=== PATIENT | female | born 1985 | race Caucasian/White ===

== ENCOUNTER 2016-08-26 21:31 | Emergency (ER) | payer OTHER ==
[2016-08-26 21:34] VITALS: BP 135/80; PULSE 91; TEMP 98.2; BMI 43.0
--- NOTE | 2016-08-26 22:51 | PDOC ---
History of Present Illness <Kajal Ann - Last Filed: 08/26/16 23:30> <Nataly Garcia - Last Filed: 08/27/16 02:02> - General Chief Complaint: Chest Pain Stated Complaint: CHEST PAIN Time Seen by Provider: 08/26/16 22:49 - History of Present Illness Initial Comments: 08/26/16 23:20 The patient is a 31 year old female, with a significant past medical history of anxiety and hypertension, who presents to the emergency department with sudden onset of chest pain and tightness a couple of hours ago. She reports the pain has been intermittent, sharp and non-radiating since the initial onset. She states her pain is presenting exactly like her experience with anxiety attacks in the past. The patient also presents with her son who is also a patient. She denies shortness of breath, headache and dizziness. She denies fever, chills , nausea, vomit, diarrhea and constipation. She denies dysuria, frequency, urgency and hematuria. Allergies: NKDA Past surgical history: x5 Social history: former smoker (6 month cessation) PCP - Dr. Mayela Aguirre (Kajal Ann) Past History <Kajal Ann - Last Filed: 08/26/16 23:30> - Past Medical History Asthma: No Cancer: No Cardiac Disorders: No Diabetes: No HTN: No Psychiatric Problems: Yes (DEPRESSION, ANXIETY) Suicide Attempt (Hx): No Seizures: No Thyroid Disease: No - Immunization History Td Vaccination: Yes Immunization Up to Date: Yes - Psycho/Social/Smoking Cessation Hx Anxiety: Yes Suicidal Ideation: No Smoking Status: Yes Smoking History: Never smoked Years of Tobacco Use: 0 Have you smoked in the past 12 months: No Number of Cigarettes Smoked Daily: 0 If you are a former smoker, when did you quit?: 3 months Cigars Per Day: 0 'Breaking Loose' booklet given: 07/13/13 Hx Alcohol Use: No Drug/Substance Use Hx: No Substance Use Type: None Hx Substance Use Treatment: No <Nataly Garcia - Last Filed: 08/27/16 02:02> - Past Medical History Allergies/Adverse Reactions: Allergies Allergy/AdvReac Type Severity Reaction Status Date / Time No Known Allergies Allergy Verified 08/26/16 21:35 Home Medications: Ambulatory Orders Clonazepam [KlonoPIN] 0.5 mg PO DAILY 10/08/14 Sertraline HCl [Zoloft -] 50 mg PO DAILY #20 tablet 01/03/15 Cardiac Specific PMH - Complaint Specific PMHX Angina: No Pulmonary Embolus: No <Nataly Garcia - Last Filed: 08/27/16 02:02> Review of Systems - Review of Systems Able to Perform ROS?: Yes <Kajal Ann - Last Filed: 08/26/16 23:30> <Nataly Garcia - Last Filed: 08/27/16 02:02> - Review of Systems Comments:: 08/26/16 23:21 CONSTITUTIONAL: Absent: fever, chills, diaphoresis, generalized weakness, malaise, loss of appetite HEENT: Absent: rhinorrhea, nasal congestion, throat pain, throat swelling, difficulty swallowing, mouth swelling, ear pain, eye pain, visual Changes CARDIOVASCULAR: (+) chest pain and tightness,Absent: syncope, palpitations, irregular heart rate , lightheadedness, peripheral edema RESPIRATORY: Absent: cough, shortness of breath, dyspnea with exertion, orthopnea, wheezing, stridor, hemoptysis GASTROINTESTINAL: Absent: abdominal pain, abdominal distension, nausea, vomiting, diarrhea, constipation, melena, hematochezia GENITOURINARY: Absent: dysuria, frequency, urgency, hesitancy, hematuria, flank pain, genital pain MUSCULOSKELETAL: Absent: myalgia, arthralgia, joint swelling SKIN: Absent: rash, itching, pallor HEMATOLOGIC/IMMUNOLOGIC: Absent: easy bleeding, easy bruising, lymphadenopathy, frequent infections ENDOCRINE: Absent: unexplained weight gain, unexplained weight loss, heat intolerance, cold intolerance NEUROLOGIC: Absent: headache, focal weakness or paresthesias, dizziness, unsteady gait, seizure, mental status changes, bladder or bowel incontinence PSYCHIATRIC: Absent: anxiety, depression, suicidal or homicidal ideation, hallucinations. (Kajal Ann) *Physical Exam <Kajal Ann - Last Filed: 08/26/16 23:30> <Nataly Garcia - Last Filed: 08/27/16 02:02> - Vital Signs Last Vital Signs Temp Pulse Resp BP Pulse Ox 98.2 F 91 H 20 135/80 98 08/26/16 21:33 08/26/16 21:33 08/26/16 21:33 08/26/16 21:33 08/26/16 21:33 - Physical Exam Comments: 08/26/16 23:21 GENERAL: Well developed, well nourished. Awake and alert. No acute distress. HEENT: Normocephalic, atraumatic. PERRLA, EOMI. No conjunctival pallor. Sclera are non- icteric. Moist mucous membranes. Oropharynx is clear. NECK: Supple. Full ROM. No JVD. Carotid pulses 2+ and symmetric, without bruits. No thyromegaly. No lymphadenopathy. CARDIOVASCULAR: Regular rate and rhythm. No murmurs, rubs, or gallops. Distal pulses are 2+ and symmetric. PULMONARY: No evidence of respiratory distress. Lungs clear to auscultation bilaterally. No wheezing, rales or rhonchi. ABDOMINAL: Soft. Non-tender. Non-distended. No rebound or guarding. No organomegaly. Normoactive bowel sounds. MUSCULOSKELETAL Normal range of motion at all joints. No bony deformities or tenderness. No CVA tenderness. EXTREMITIES: No cyanosis. No clubbing. No edema. No calf tenderness. SKIN: Warm and dry. Normal capillary refill. No rashes. No jaundice. NEUROLOGICAL: Alert, awake, appropriate. Cranial nerves 2-12 intact. Normoreflexic in the upper and lower extremities. Normal speech. Toes are down-going bilaterally. Gait is normal without ataxia. PSYCHIATRIC: Cooperative. Good eye contact. Appropriate mood and affect. (Kajal Ann) Heart Score/ECG Review <Kajal Ann - Last Filed: 08/26/16 23:30> <Nataly Garcia - Last Filed: 08/27/16 02:02> - ECG Intrepretation Comment:: 08/26/16 23:30 ECG was read by Dr. Garcia at 21:40 Impression: Normal Sinus Rhythm (Kajal Ann) ED Treatment Course - LABORATORY CBC & Chemistry Diagram: 08/26/16 23:15 08/26/16 23:15 <Kajal Ann - Last Filed: 08/26/16 23:30> - LABORATORY CBC & Chemistry Diagram: 08/26/16 23:15 08/26/16 23:15 <Nataly Garcia - Last Filed: 08/27/16 02:02> - ADDITIONAL ORDERS Additional order review: Laboratory Results 08/26/16 08/26/16 08/26/16 23:15 23:15 23:15 Sodium 140 Potassium 4.0 Chloride 102 Carbon Dioxide 29 Anion Gap 9 BUN 17 Creatinine 0.8 Creat Clearance w eGFR > 60 Random Glucose 101 Calcium 8.9 Total Bilirubin 0.2 D AST 12 L ALT 19 Alkaline Phosphatase 81 Creatine Kinase 93 Troponin I < 0.02 Total Protein 7.7 Albumin 3.4 Serum , Qual Negative 08/26/16 23:15 RBC 4.31 MCV 78.3 L MCHC 33.6 RDW 16.1 H MPV 9.1 Neutrophils % 56.5 D Lymphocytes % 34.8 D Monocytes % 5.6 Eosinophils % 2.4 D Basophils % 0.7 - RADIOLOGY Radiology Studies Ordered: Category Date Time Status CHEST PA & LAT [RAD] Stat Radiology 08/27/16 00:51 Taken - Medications Given in the ED: ED Medications Discontinued Medications Generic Name Dose Route Start Last Admin Trade Name Paul PRN Reason Stop Dose Admin Aspirin 81 mg 08/26/16 23:04 08/26/16 23:07 Asa - PO 08/26/16 23:05 81 mg ONCE ONE Administration *DC/Admit/Observation/Transfer <Kajal Ann - Last Filed: 08/26/16 23:30> <Nataly Garcia - Last Filed: 08/27/16 02:02> Diagnosis at time of Disposition: Atypical chest pain, Anxiety - Discharge Dispostion Disposition: HOME Condition at time of disposition: Stable - Referrals Referrals: Mayela Aguirre MD [Primary Care Provider] - - Patient Instructions Printed Discharge Instructions: DI for Atypical Chest Pain, DI for Anxiety -- Adult Additional Instructions: PLEASE FOLLOWUP WITH YOUR REGULAR PHYSICIAN RETURN FOR ANY RECURRENT SYMPTOMS please have your psychiatrist renew your prescriptions - Attestations Scribe Attestion: 08/26/16 23:23 Documentation prepared by Kajal Ann, acting as program medical director for Nataly Garcia MD (Kajal Ann)
[2016-08-26] MEDS ORDERED: ASPIRIN 81 MG CHEWABLE TABLETS PO ONE (23:04)
[2016-08-26] MEDS ORDERED: ASPIRIN 81 MG CHEWABLE TABLETS ONE (23:05)
[2016-08-26 23:26] LABS: BASOPHIL 0.7 % (0-2.0); EOSINOPHIL 2.4 % (0-4.5); MCH 26.3 pg (25.7-33.7); MCHC 33.6 g/dl (32.0-36.0); MEAN CELL VOLUME 78.3 fl (80-96); MEAN PLT VOLUME 9.1 fl (7.5-11.1); NEUTROPHILS 56.5 % (42.8-82.8); PLATELET COUNT 306 K/MM3 (134-434); RDW 16.1 % (11.6-15.6); WHITE BLOOD COUNT 11.4 K/mm3 (4.0-10.0)
[2016-08-27 00:08] LABS: ALBUMIN 3.4 g/dl (3.4-5.0); ANION GAP 9 (8-16); BILIRUBIN,TOTAL 0.2 mg/dL (0.2-1.0); CALCIUM 8.9 mg/dL (8.5-10.1); CO2 29 mmol/L (21-32); CREATININE 0.8 mg/dL (0.55-1.02); GLUCOSE,RANDOM 101 mg/dL (74-106); SGOT/AST 12 U/L (15-37); SGPT/ALT 19 U/L (12-78); TOT PROT 7.7 g/dl (6.4-8.2)
[2016-08-27 00:09] LABS: ALK PHOS 81 U/L (45-117); TROPONIN I < 0.02 ng/ml (0.00-0.05)
[2016-08-27] MEDS ORDERED: ALPRAZolam 0.25 MG TABLET PO ONE (02:00)
[2016-08-27] MEDS ORDERED: ALPRAZolam 0.25 MG TABLET ONE (02:05)
--- NOTE | 2016-08-29 11:53 | EKG ---
Test Reason : Blood Pressure : / mmHG Vent. Rate : 082 BPM Atrial Rate : 082 BPM P-R Int : 168 ms QRS Dur : 092 ms QT Int : 368 ms P-R-T Axes : 055 081 045 degrees QTc Int : 429 ms NORMAL SINUS RHYTHM NONSPECIFIC T WAVE ABNORMALITY WHEN COMPARED WITH ECG OF 05-OCT-2014 10:09, NO SIGNIFICANT CHANGE WAS FOUND Confirmed by MARCIAL CUEVAS MD ([id number]) on 08/29/2016 11:52:43 AM Referred By: Confirmed By:MARCIAL CUEVAS MD
== END 2016-08-27 02:10 | disposition home or self-care (01) ==
LOC: JER 21:31
DX: R07.89 Other chest pain (principal); F41.9 Anxiety disorder, unspecified; I10 Essential (primary) hypertension
CPT/HCPCS: 36415; 71020-TC; 80053; 82550; 84484; 84703; 85025; 93005; 93010; 99281-25

== ENCOUNTER 2016-12-21 13:11 | Emergency (ER) | payer OTHER ==
[2016-12-21 13:23] VITALS: BP 137/78; PULSE 90; TEMP 98; BMI 43.0
--- NOTE | 2016-12-21 14:19 | PDOC ---
History of Present Illness - General Chief Complaint: Pain Stated Complaint: CHEST PAIN Time Seen by Provider: 12/21/16 13:37 - History of Present Illness Initial Comments: 12/21/16 14:14 CHIEF COMPLAINT: back and chest pain HISTORY OF PRESENT ILLNESS: 31 yo F with hx of PMH of anxiety and HTN (now off medication) presents to fast track with left sided shoulder pain worsened with movement and inspiration since yesterday. Patient denies being on control , any recent travel or extended sedentary periods or smoking. No recent travel or sick contacts. PAST MEDICAL HISTORY: Denies past medical history FAMILY HISTORY: Denies SOCIAL HISTORY:Denies tobacco, alcohol, illicit drug use. SURGICAL HISTORY: Denies ALLERGIES: No known drug allergies REVIEW OF SYSTEMS General/Constitutional: Denies fever or chills. Denies weakness, weight change. HEENT: Denies change in vision. Denies ear pain or discharge. Denies sore throat. Cardiovascular: Denies chest pain or shortness of breath. Respiratory: Denies cough, wheezing, or hemoptysis. Gastrointestinal: Denies nausea, vomiting, diarrhea or constipation. Denies rectal bleeding. Genitourinary: Denies dysuria, frequency, or change in urination. Musculoskeletal: Pain to left shoulder and left chest pain with movement. Denies joint or muscle swelling or pain. Denies neck or back pain. Skin and breasts: Denies rash or easy bruising. PHYSICAL EXAM General Appearance: Well-appearing, appropriately dressed. No apparent distress , no intoxication. HEENT: EOMI, PERRLA, normal ENT inspection, normal voice, TMs normal, pharynx normal. No conjunctival pallor. No photophobia, scleral icterus. Neck: Supple. Trachea midline. No tenderness, rigidity, carotid bruit, stridor , lymphadenopathy, or thyromegaly. Respiratory/Chest: Lungs CTAB. No shortness of breath, chest tenderness, respiratory distress, accessory muscle use. No crackles, rales, rhonchi, stridor , wheezing, dullness Cardiovascular: RRR. S1, S2. No JVD, murmur, bradycardia, tachycardia. Vascular Pulses: Dorsalis-Pedis (R): 2+, Dorsalis-Pedis (L): 2+ Gastrointestinal/Abdominal: Normal bowel sounds. Abdomen soft, non-distended. No tenderness or rebound tenderness. No organomegaly, pulsatile mass, guarding , hernia, hepatomegaly, splenomegaly. Lymphatic: No adenopathy, tenderness. Musculoskeletal/Extremities: Reproducible left sided chest and upper back tenderness on palpation. Normal inspection. FROM of all extremities, normal capillary refill. Pelvis Stable. No CVA tenderness. No tenderness to extremities, pedal edema, swelling, erythema or deformity. Integumentary: Appropriate color, dry, warm. No cyanosis, erythema, jaundice or rash Neurologic: balloon dipper II-XII intact. Fully oriented, alert. Appropriate mood/affect. Motor strength 5/5. No appreciable EOM palsy, facial droop or sensory deficit. 12/21/16 14:19 Past History - Past Medical History Allergies/Adverse Reactions: Allergies Allergy/AdvReac Type Severity Reaction Status Date / Time No Known Allergies Allergy Verified 12/21/16 13:23 Home Medications: Ambulatory Orders Diazepam [Valium] 5 mg PO HS PRN #5 tablet MDD 1 12/21/16 Naproxen [Naprosyn -] 500 mg PO BID #14 tablet 12/21/16 Asthma: No Cancer: No Cardiac Disorders: No Diabetes: No HTN: No Psychiatric Problems: Yes (DEPRESSION, ANXIETY) Suicide Attempt (Hx): No Seizures: No Thyroid Disease: No - Immunization History Td Vaccination: Yes Immunization Up to Date: Yes - Psycho/Social/Smoking Cessation Hx Anxiety: Yes Suicidal Ideation: No Smoking Status: Yes Smoking History: Never smoked Years of Tobacco Use: 0 Have you smoked in the past 12 months: No Number of Cigarettes Smoked Daily: 0 If you are a former smoker, when did you quit?: 3 months Cigars Per Day: 0 Information on smoking cessation initiated: No 'Breaking Loose' booklet given: 07/13/13 Hx Alcohol Use: No Drug/Substance Use Hx: No Substance Use Type: None Hx Substance Use Treatment: No *Physical Exam - Vital Signs Last Vital Signs Temp Pulse Resp BP Pulse Ox 98 F 90 18 137/78 99 12/21/16 13:20 12/21/16 13:20 12/21/16 13:20 12/21/16 13:20 12/21/16 13:20 Medical Decision Making - Medical Decision Making 12/21/16 14:23 31 yo F with hx of PMH of anxiety and HTN (now off medication) presents to fast track with left sided shoulder pain worsened with movement and inspiration since yesterday. VS notable for HR 90, but at patient's baseline. PE considered but unlikely, patient is PERC negative. -EKG -Urine EKG - NSR Upreg negative. -60 mg IM Toradol 12/21/16 14:25 Advised patient to take medication as prescribed and follow up with primary care doctor this week. Advised patient of signs and symptoms for return to ED. Patient verbalized understanding and agrees to plan. *DC/Admit/Observation/Transfer Diagnosis at time of Disposition: Anxiety, Costochondral pain - Discharge Dispostion Disposition: HOME Condition at time of disposition: Improved Admit: No - Prescriptions Prescriptions: Naproxen [Naprosyn -] 500 mg PO BID #14 tablet Diazepam [Valium] 5 mg PO HS PRN #5 tablet MDD 1 PRN Reason: Muscle Spasms - Referrals Referrals: Florentino Padilla [Primary Care Provider] - - Patient Instructions Printed Discharge Instructions: DI for Costochondritis Additional Instructions: Please take medication as prescribed. Please follow up with your primary care doctor THIS WEEK. If you experience any crushing chest pain, - Post Discharge Activity
[2016-12-21] MEDS ORDERED: KETOROLAC TROMETHAMINE 60 MG/2 ML VIAL IM ONE (14:24)
[2016-12-21] MEDS ORDERED: KETOROLAC TROMETHAMINE 60 MG/2 ML VIAL ONE (14:44)
--- NOTE | 2016-12-22 10:49 | EKG ---
Test Reason : Blood Pressure : / mmHG Vent. Rate : 094 BPM Atrial Rate : 094 BPM P-R Int : 148 ms QRS Dur : 084 ms QT Int : 340 ms P-R-T Axes : 047 073 042 degrees QTc Int : 425 ms NORMAL SINUS RHYTHM NORMAL ECG WHEN COMPARED WITH ECG OF 26-AUG-2016 21:40, NO SIGNIFICANT CHANGE WAS FOUND Confirmed by SANDRA CROFT MD ([id number]) on 12/22/2016 10:48:43 AM Referred By: Confirmed By:SANDRA CROFT MD
== END 2016-12-21 15:08 | disposition home or self-care (01) ==
LOC: JERFT 13:11
PROC: 3E0233Z Introduction of Anti-inflammatory into Muscle, Percutaneous Approach (ICD-10-PCS; principal; 2016-12-21)
DX: M94.0 Chondrocostal junction syndrome [Tietze] (principal); F41.9 Anxiety disorder, unspecified; I10 Essential (primary) hypertension
CPT/HCPCS: 84703; 93005; 93010; 96372; 99281-25

== ENCOUNTER 2017-10-04 02:54 | Emergency (ER) | payer OTHER ==
--- NOTE | 2017-10-04 03:04 | PDOC ---
History of Present Illness - General Stated Complaint: ABDOMINAL PAIN Time Seen by Provider: 10/04/17 03:03 History Source: Patient Exam Limitations: No Limitations - History of Present Illness Travel History: No Initial Comments: 10/04/17 03:43 Best Contact: PCP:Dr. Gaspar Pmhx: Asthma, PTSD Pshx:C sections(5) 2014, 2009. 2008. 2004, 2002 Allergies:NKDA LMP: 09/26/2017 32-year-old female presents to the ER with her mother complaining of epigastric abdominal discomfort. Pain is described as 5/10 achy nonradiating intermittent discomfort with 3 bouts of nausea/vomiting that were nonbloody and nonbilious. Pain is exacerbated on touch and alleviated at rest. He she states she ate dinner at 2200 hrs. in a seafood restaurant in [facility] and felt like upset stomach shortly afterwards. Patient denies fever, chills, headache, dizziness, lightheadedness, chest pain, shortness of breath, back pains, flank pains, urinary symptoms: Frequency/urgency/hesitancy, hematuria. Past History - Past Medical History Allergies/Adverse Reactions: Allergies Allergy/AdvReac Type Severity Reaction Status Date / Time No Known Allergies Allergy Verified 10/04/17 03:10 Home Medications: Ambulatory Orders NK [No Known Home Medication] 10/04/17 Asthma: No Cancer: No Cardiac Disorders: No Diabetes: No HTN: No Psychiatric Problems: Yes (DEPRESSION, ANXIETY) Seizures: No Thyroid Disease: No - Immunization History Td Vaccination: Yes Immunization Up to Date: Yes - Suicide/Smoking/Psychosocial Hx Smoking Status: Yes Smoking History: Never smoked Years of Tobacco Use: 0 Have you smoked in the past 12 months: No Number of Cigarettes Smoked Daily: 0 If you are a former smoker, when did you quit?: 3 months Cigars Per Day: 0 'Breaking Loose' booklet given: 07/13/13 Hx Alcohol Use: No Drug/Substance Use Hx: No Substance Use Type: None Hx Substance Use Treatment: No Review of Systems - Review of Systems Able to Perform ROS?: Yes Comments:: 10/04/17 03:45 CONSTITUTIONAL: Absent: fever, chills, diaphoresis, generalized weakness, malaise, loss of appetite HEENT: Absent: rhinorrhea, nasal congestion, throat pain, throat swelling, difficulty swallowing, mouth swelling, ear pain, eye pain, visual Changes CARDIOVASCULAR: Absent: chest pain, loss of consciousness, palpitations, irregular heart rate, peripheral edema RESPIRATORY: Absent: cough, shortness of breath, dyspnea with exertion, orthopnea, wheezing, stridor, hemoptysis GASTROINTESTINAL: +epigastric pain Absent: abdominal distension, nausea, vomiting, diarrhea, constipation, melena , hematochezia GENITOURINARY: Absent: dysuria, frequency, urgency, hesitancy, hematuria, flank pain, genital pain MUSCULOSKELETAL: Absent: myalgia, arthralgia, joint swelling SKIN: Absent: rash, itching, pallor HEMATOLOGIC/IMMUNOLOGIC: Absent: easy bleeding, easy bruising, lymphadenopathy, frequent infections Is the patient limited Bhutanese proficient: No *Physical Exam - Physical Exam Comments: 10/04/17 03:46 GENERAL: Well developed, well nourished. Awake and alert. No acute distress. HEENT: Normocephalic, atraumatic. PERRLA, EOMI. No conjunctival pallor. Sclera are non- icteric. Moist mucous membranes. Oropharynx is clear. NECK: Supple. Full ROM. No JVD. Carotid pulses 2+ and symmetric, without bruits. No thyromegaly. No lymphadenopathy. CARDIOVASCULAR: Regular rate and rhythm. No murmurs, rubs, or gallops. Distal pulses are 2+ and symmetric. PULMONARY: No evidence of respiratory distress. Lungs clear to auscultation bilaterally. No wheezing, rales or rhonchi. ABDOMINAL: +epigastric pain Soft. Non-distended. No rebound or guarding. No organomegaly. Normoactive bowel sounds. MUSCULOSKELETAL Normal range of motion at all joints. No bony deformities or tenderness. No CVA tenderness. SKIN: Warm and dry. Normal capillary refill. No rashes. No jaundice. ED Treatment Course - LABORATORY CBC & Chemistry Diagram: 10/04/17 02:56 10/04/17 02:56 Progress Note - Progress Note Progress Note: 0515hrs patient refuses to get a CAT scan of the abdomen and pelvis with by mouth and IV contrast. 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 The ER is open 24 hours concerns - Post Discharge Activity
[2017-10-04] MEDS ORDERED: ONDANSETRON 4 MG/2 ML VIAL IVPUSH ONE (03:05)
[2017-10-04] MEDS ORDERED: SODIUM CHLORIDE 1,000 ML IV STA (03:05)
[2017-10-04 03:10] VITALS: BP 120/82; PULSE 91; TEMP 97.8; BMI 39.9
[2017-10-04] MEDS ORDERED: MAG HYDROX/AL HYDROX/SIMETH 30 ML UNIT-DOSE CUP PO ONE (03:29)
[2017-10-04] MEDS ORDERED: FAMOTIDINE 20 MG/50 ML IVPB 20 MG/50 ML MG IVPB ONE (03:30)
[2017-10-04] MEDS ORDERED: MAG HYDROX/AL HYDROX/SIMETH 30 ML UNIT-DOSE CUP ONE (03:30)
[2017-10-04 03:37] LABS: BASO % 0.2 % (0-2.0); EOS % 0.7 % (0-4.5); HEMATOCRIT 34.8 % (32.4-45.2); LYMPH % 16.8 % (8-40); MCH 27.6 pg (25.7-33.7); MCHC 34.5 g/dl (32.0-36.0); MEAN CELL VOLUME 79.9 fl (80-96); MEAN PLT VOLUME 9.6 fl (7.5-11.1); MONO % 7.8 % (3.8-10.2); NEUT % 74.5 % (42.8-82.8); PLATELET COUNT 345 K/MM3 (134-434); RBC 4.35 M/mm3 (3.60-5.2); RDW 16.6 % (11.6-15.6); WHITE BLOOD COUNT 17.8 K/mm3 (4.0-10.0)
[2017-10-04] MEDS ORDERED: FAMOTIDINE 20 MG/50 ML IVPB 20 MG/50 ML MG IVPB SCH (03:45)
[2017-10-04 03:54] LABS: HCG,QUALITATIVE URINE NEGATIVE; URINE APPEARANCE SLCLOUDY; URINE BILIRUBIN NEGATIVE (<2.0 mg/dL); URINE COLOR YELLOW; URINE GLUCOSE (UA) NEGATIVE (NEGATIVE); URINE KETONE TRACE (NEGATIVE); URINE LEUK ESTERASE NEGATIVE (NEGATIVE); URINE NITRITE NEGATIVE (NEGATIVE)
[2017-10-04 03:57] LABS: URINE PROTEIN 1+ (NEGATIVE)
[2017-10-04 04:00] LABS: EPI CELLS RARE /HPF (FEW); URINE MUCUS RARE
[2017-10-04 04:03] LABS: ALBUMIN 3.8 g/dl (3.4-5.0); ALK PHOS 76 U/L (45-117); ANION GAP 11 (8-16); BILIRUBIN,TOTAL 0.2 mg/dL (0.2-1.0); BLOOD UREA NITROGEN 13 mg/dL (7-18); CALCIUM 9.2 mg/dL (8.5-10.1); CHLORIDE 102 mmol/L (98-107); CO2 29 mmol/L (21-32); CREATININE 0.8 mg/dL (0.55-1.02); GLUCOSE,RANDOM 99 mg/dL (74-106); LIPASE 179 U/L (73-393); SGPT/ALT 23 U/L (12-78); SODIUM 142 mmol/L (136-145); TOT PROT 8.1 g/dl (6.4-8.2)
[2017-10-04 04:14] LABS: POTASSIUM 3.9 mmol/L (3.5-5.1)
[2017-10-04 04:15] LABS: SGOT/AST 23 U/L (15-37)
== END 2017-10-04 05:50 | disposition left against medical advice (07) ==
LOC: JER 02:54
PROC: 3E033GC Introduction of Other Therapeutic Substance into Peripheral Vein, Percutaneous Approach (ICD-10-PCS; principal; 2017-10-04)
PROC: 3E033GC Introduction of Other Therapeutic Substance into Peripheral Vein, Percutaneous Approach (ICD-10-PCS; 2017-10-04)
DX: R10.13 Epigastric pain (principal); R11.2 Nausea with vomiting, unspecified
CPT/HCPCS: 36415; 80053; 81003; 81015; 83690; 84703; 85025; 96365; 96375; 99283-25; J7030

== ENCOUNTER 2018-03-23 19:43 | Emergency (ER) | payer OTHER ==
[2018-03-23 19:55] VITALS: BP 129/71; PULSE 95; TEMP 98.4; BMI 38.0
--- NOTE | 2018-03-23 19:59 | PDOC ---
Rapid Medical Evaluation Chief Complaint: Syncope/Near Syncope Medical Evaluation: Allergies Allergy/AdvReac Type Severity Reaction Status Date / Time No Known Allergies Allergy Verified 03/23/18 19:55 Vital Signs Temp Pulse Resp BP Pulse Ox 98.4 F 95 H 16 129/71 99 03/23/18 19:52 03/23/18 19:52 03/23/18 19:52 03/23/18 19:52 03/23/18 19:52 03/23/18 19:57 I have performed a brief in-person evaluation of this patient. The patient presents with a chief complaint of: syncopal episode while having argument with mother . h/o anxiety disorder Pertinent physical exam findings: A&O x 3 I have ordered the following: CBC,CMP, EKG. cardiac profile The patient will proceed to the ED for further evaluation. Discharge Disposition - Diagnosis Episode of syncope Qualifiers: Syncope type: vasovagal syncope Qualified Code(s): R55 - Syncope and collapse - Referrals - Patient Instructions - Post Discharge Activity
[2018-03-23 20:20] LABS: BASO % 0.7 % (0-2.0); EOS % 1.2 % (0-4.5); HEMATOCRIT 33.3 % (32.4-45.2); HEMOGLOBIN 11.1 GM/dL (10.7-15.3); LYMPH % 28.8 % (8-40); MCH 26.9 pg (25.7-33.7); MCHC 33.5 g/dl (32.0-36.0); MEAN CELL VOLUME 80.3 fl (80-96); MEAN PLT VOLUME 9.5 fl (7.5-11.1); MONO % 5.1 % (3.8-10.2); NEUT % 64.2 % (42.8-82.8); PLATELET COUNT 341 K/MM3 (134-434); RBC 4.14 M/mm3 (3.60-5.2); RDW 16.2 % (11.6-15.6); WHITE BLOOD COUNT 10.3 K/mm3 (4.0-10.0)
--- NOTE | 2018-03-23 20:31 | PDOC ---
History of Present Illness - General Chief Complaint: Syncope/Near Syncope Stated Complaint: SYNCOPE Time Seen by Provider: 03/23/18 20:28 History Source: Patient - History of Present Illness Initial Comments: 03/23/18 21:02 32 year old female c/o near syncope while having an argument with mother. patient reports that she has similar presentation with her anxiety. reports one episode of vomiting post near syncope. denies chest pain, dizziness, denies head trauma / injury 03/23/18 21:23 Past History - Past Medical History Allergies/Adverse Reactions: Allergies Allergy/AdvReac Type Severity Reaction Status Date / Time No Known Allergies Allergy Verified 03/23/18 19:55 Home Medications: Ambulatory Orders NK [No Known Home Medication] 10/04/17 Asthma: No Cancer: No Cardiac Disorders: No COPD: No Diabetes: No HTN: No Psychiatric Problems: Yes (DEPRESSION, ANXIETY) Seizures: No Thyroid Disease: No - Immunization History Td Vaccination: Yes Immunization Up to Date: Yes - Suicide/Smoking/Psychosocial Hx Smoking Status: Yes Smoking History: Never smoked Years of Tobacco Use: 0 Have you smoked in the past 12 months: No Number of Cigarettes Smoked Daily: 0 If you are a former smoker, when did you quit?: 3 months Cigars Per Day: 0 Information on smoking cessation initiated: No 'Breaking Loose' booklet given: 07/13/13 Hx Alcohol Use: No Drug/Substance Use Hx: No Substance Use Type: None Hx Substance Use Treatment: No *Physical Exam - Vital Signs Last Vital Signs Temp Pulse Resp BP Pulse Ox 98.4 F 95 H 16 129/71 99 03/23/18 19:52 03/23/18 19:52 03/23/18 19:52 03/23/18 19:52 03/23/18 19:52 - Physical Exam General Appearance: Yes: Appropriately Dressed Respiratory/Chest: positive: Lungs Clear Cardiovascular: positive: Regular Rhythm, Regular Rate Gastrointestinal/Abdominal: positive: Normal Bowel Sounds, Soft Integumentary: positive: Normal Color, Dry, Warm Neurologic: positive: Fully Oriented, Alert, Normal Mood/Affect ED Treatment Course - LABORATORY CBC & Chemistry Diagram: 03/23/18 20:04 03/23/18 20:04 - ADDITIONAL ORDERS Additional order review: 03/23/18 20:04 RBC 4.14 MCV 80.3 MCHC 33.5 RDW 16.2 H MPV 9.5 Neutrophils % 64.2 Lymphocytes % 28.8 D Monocytes % 5.1 Eosinophils % 1.2 Basophils % 0.7 D Medical Decision Making - Medical Decision Making 03/23/18 21:34 A: syncope P: labs *DC/Admit/Observation/Transfer Diagnosis at time of Disposition: Episode of syncope Qualifiers: Syncope type: vasovagal syncope Qualified Code(s): R55 - Syncope and collapse - Discharge Dispostion Disposition: HOME - Referrals Referrals: Randy Meyer MD [Primary Care Provider] - Call tomorrow - Patient Instructions Printed Discharge Instructions: DI for Syncope in Adults (Fainting) Additional Instructions: drink plenty of fluids follow up with your doctor as soon as possible. return to the ED if symptoms worsen - Post Discharge Activity Forms/Work/School Notes: Back to Work
[2018-03-23 20:46] LABS: ALBUMIN 3.6 g/dl (3.4-5.0); ALK PHOS 76 U/L (45-117); ANION GAP 5 MMOL/L (8-16); BILIRUBIN,TOTAL 0.4 mg/dL (0.2-1); BLOOD UREA NITROGEN 9 mg/dL (7-18); CALCIUM 8.5 mg/dL (8.5-10.1); CHLORIDE 107 mmol/L (98-107); CO2 27 mmol/L (21-32); CREATININE 0.7 mg/dL (0.55-1.3); GLUCOSE,RANDOM 80 mg/dL (74-106); POTASSIUM 3.8 mmol/L (3.5-5.1); SGOT/AST 17 U/L (15-37); SGPT/ALT 25 U/L (13-61); SODIUM 139 mmol/L (136-145); TOT PROT 7.8 g/dl (6.4-8.2)
[2018-03-23] MEDS ORDERED: ACETAMINOPHEN 325 MG TABLET (FP) PO ONE (21:22)
[2018-03-23] MEDS ORDERED: ACETAMINOPHEN 325 MG TABLET (FP) ONE (21:44)
--- NOTE | 2018-03-24 15:16 | EKG ---
Test Reason : Blood Pressure : / mmHG Vent. Rate : 088 BPM Atrial Rate : 088 BPM P-R Int : 162 ms QRS Dur : 092 ms QT Int : 344 ms P-R-T Axes : 059 071 027 degrees QTc Int : 416 ms NORMAL SINUS RHYTHM NORMAL ECG WHEN COMPARED WITH ECG OF 21-DEC-2016 13:18, NO SIGNIFICANT CHANGE WAS FOUND Confirmed by WALTER HERNANDEZ MD ([id number]) on 03/24/2018 3:15:57 PM Referred By: Confirmed By:WALTER HERNANDEZ MD
== END 2018-03-23 21:52 | disposition home or self-care (01) ==
LOC: JER 19:43
DX: R55 Syncope and collapse (principal); F41.8 Other specified anxiety disorders; F32.9 Major depressive disorder, single episode, unspecified
CPT/HCPCS: 36415; 80053; 82550; 84484; 84703; 85025; 93005; 93010; 99282-25

== ENCOUNTER 2018-07-21 05:19 | Day surgery (SDC) | payer OTHER ==
[2018-07-20 09:13] VITALS: BMI 38.5
[2018-07-21] MEDS ORDERED: MIDAZOLAM HCL 2 MG/2 ML SINGLE DOSE VIAL ONE (08:39)
[2018-07-21] MEDS ORDERED: ONDANSETRON 4 MG/2 ML VIAL IVPUSH PRN (08:57)
[2018-07-21] MEDS ORDERED: PROMETHAZINE HCL 25 MG/1 ML VIAL IVPB PRN (08:57)
[2018-07-21] MEDS ORDERED: oxyCODONE HCL 5 MG TABLET PO PRN (08:57)
[2018-07-21] MEDS ORDERED: LACTATED RINGERS SOLUTION 1,000 ML IV SCH (09:00)
[2018-07-21] MEDS ORDERED: IBUPROFEN 800 MG/8 ML IJ IVPB PRN (09:32)
[2018-07-21] MEDS ORDERED: ACETAMINOPHEN 325 MG TABLET (FP) PO PRN (09:32)
--- NOTE | 2018-07-21 09:32 | HP ---
History & Physical Update - History History: No Change - Physical Physical: No Change - Assessment Assessment: No Change - Plan Plan: No Change (High grade dysplasia, for LEEP (agree with H&P from 07/19/18))
[2018-07-21] MEDS ORDERED: FERRIC SUBSULFATE 500 ML BOTTLE TP ONE (09:50)
[2018-07-21] MEDS ORDERED: IODINE/POTASSIUM IODIDE 5%/10% 14 ML BOTTLE NR ONE (09:50)
--- NOTE | 2018-07-21 10:20 | OP ---
Operative Note - Note: Operative Date: 07/21/18 (dictation [id number]) Pre-Operative Diagnosis: high grade cervical dysplasia Operation: LEEP Post-Operative Diagnosis: Same as Pre-op Surgeon: Marcela Parham Anesthesia: General (LMA) Specimens Removed: LEEP cervical biopsy Estimated Blood Loss (mls): 2 Operative Report Dictated: Yes
[2018-07-21] MEDS ORDERED: ALBUTEROL SO4 0.083% IH SOL 2.5 MG/3 ML VIAL.NEB. NEB ONE (11:11)
--- NOTE | 2018-07-21 11:16 | OP ---
DATE OF OPERATION: 07/21/2018 PREOPERATIVE DIAGNOSIS: High-grade cervical dysplasia. POSTOPERATIVE DIAGNOSIS: High-grade cervical dysplasia. PROCEDURE: Loop electrosurgical excision procedure cone biopsy. SURGEON: Marcela Parham MD ANESTHESIA: LMA. ANESTHESIOLOGIST: Russell Romero MD INSURANCE CLAIMS ASSISTANT: Arnaldo Antonio CRNA COMPLICATIONS: None. ESTIMATED BLOOD LOSS: 2 mL. DISPOSITION: Stable to PACU. SPECIMENS REMOVED: Cervical biopsy. COUNTS: Sponge, needle, and instrument counts were correct. BRIEF HISTORY AND PROCEDURE: Patient is a 32-year-old female who had been seen in the office with a long history of abnormal Pap smears and cervical dysplasia. On Pap smear in the office, she was noted to have a high-grade squamous intraepithelial lesion. At this point, the patient elected to undergo a LEEP procedure, which was scheduled and consents for the procedure were signed in the office. DESCRIPTION OF PROCEDURE: Patient was admitted to [facility] on July 21, 2018. Consents which were signed in the office were reconfirmed. She was then taken back to the operating room, given LMA anesthesia, and placed in the dorsal lithotomy position. A coated speculum was placed inside the vagina. The cervix was easily visualized, and Lugols solution was applied. Using a large LEEP loop, a single pass was completed to excise the LEEP cone biopsy, which was marked in 12 o'clock position and sent to Pathology for permanent evaluation. Rollerball cautery was used to create hemostasis of the surgical bed, and all instruments were removed from the vagina. Counts were reported to be correct. The patient tolerated the procedure well and was recovering in stable condition in the PACU after the procedure. MARCELA PARHAM DO /[id number]
[2018-07-21] MEDS ORDERED: ALBUTEROL SO4 0.5 % INH SOLN 2.5 MG/0.5 ML VIAL.NEB. NEB ONE (11:32)
[2018-07-21 11:48] VITALS: TEMP 98.2
[2018-07-21 13:21] VITALS: BP 120/77; PULSE 99
--- NOTE | 2018-07-23 10:03 | PATH ---
Surgical Pathology Report Patient Name: MIKE MARTINEZ [facility]. Rec. #: [id number] /Age/Gender: 1985 (Age: 32) / F Account: [id number] Location: [facility] SURGICAL Taken: 07/21/2018 Received: 07/21/2018 Reported: 07/23/2018 Physicians: Marcela Parham M.D. Specimen(s) Received CERVICAL BIOPSY LEEP Clinical History High grade cervical dysplasia Final Diagnosis CERVIX, LOOP ELECTROSURGICAL EXCISION PROCEDURE (LEEP): CERVICAL SQUAMOUS AND ENDOCERVICAL MUCOSA WITH HIGH GRADE SQUAMOUS INTRAEPITHELIAL LESION (CERVICAL INTRAEPITHELIAL NEOPLASIA 3/ JUANITA 3 WITH GLANDULAR INVOLVEMENT IN 12-3:00 and 6-9:00 QUADRANTS. FOCAL AREAS OF LOW GRADE SQUAMOUS INTRAEPITHELIAL LESION PRESENT. SURGICAL RESECTION MARGINS: POSITIVE FOR HIGH GRADE DYSPLASIA (6-9:00). TRANSFORMATION ZONE: PRESENT. Electronically Signed Cary Osei M.D. Gross Description Received in formalin labeled "cervical biopsy," is a 1.8 cm in diameter annular cervical LEEP cone biopsy. There is a suture marking the 12:00 aspect of the specimen, per the surgeon. The specimen is partially surfaced by a christianson-pink, shiny glistening mucosa without visible lesions. The specimen is inked blue and serially sectioned. The specimen is entirely submitted in 4 cassettes as follows: 1-12:00 to 3:00; 2-3:00 to 6:00; 3-6:00 to 9:00; 4-9:00 to 12:00. /07/21/2018 saudi/07/21/2018
== END 2018-07-21 12:45 | disposition home or self-care (01) ==
LOC: JASU-SURG 05:19
PROVIDERS: ATTEND Obstetrics & Gynecology
PROC: 0UBC7ZX Excision of Cervix, Via Natural or Artificial Opening, Diagnostic (ICD-10-PCS; principal; 2018-07-21 09:30)
DX: D06.7 Carcinoma in situ of other parts of cervix (principal)
CPT/HCPCS: 88307-TC; 94760

== ENCOUNTER 2019-03-02 04:59 | Day surgery (SDC) | payer OTHER ==
[2019-03-01 09:52] VITALS: BMI 41.3
[2019-03-02] MEDS ORDERED: ACETAMINOPHEN 325 MG TABLET (FP) PO PRN (10:02)
[2019-03-02] MEDS ORDERED: IBUPROFEN 800 MG/8 ML IJ IVPB PRN (10:02)
--- NOTE | 2019-03-02 10:02 | HP ---
History & Physical Update - History History: No Change - Physical Physical: No Change - Assessment Assessment: No Change - Plan Plan: No Change (No change from H&P 02/25/19, cervical dysplasia, for LEEP)
[2019-03-02] MEDS ORDERED: oxyCODONE HCL 5 MG TABLET PO PRN (11:01)
[2019-03-02] MEDS ORDERED: ONDANSETRON 4 MG/2 ML VIAL IVPUSH PRN (11:01)
[2019-03-02] MEDS ORDERED: LACTATED RINGERS SOLUTION 1,000 ML IV SCH (11:15)
--- NOTE | 2019-03-02 11:15 | OP ---
Operative Note - Note: Operative Date: 03/02/19 Pre-Operative Diagnosis: high grade cervical dysplasia Operation: LEEP Post-Operative Diagnosis: Same as Pre-op Surgeon: Marcela Parham Anesthesiologist/INTERNATIONAL MARKETING INTERN: Melissa Rosas Anesthesia: General (with LMA) Specimens Removed: cervical LEEP biopsy, endocervical biopsy Estimated Blood Loss (mls): 10 Operative Report Dictated: Yes
[2019-03-02 11:28] VITALS: TEMP 98
--- NOTE | 2019-03-02 11:31 | EKG ---
Test Reason : Blood Pressure : / mmHG Vent. Rate : 076 BPM Atrial Rate : 076 BPM P-R Int : 162 ms QRS Dur : 086 ms QT Int : 370 ms P-R-T Axes : 039 078 042 degrees QTc Int : 416 ms NORMAL SINUS RHYTHM NORMAL ECG WHEN COMPARED WITH ECG OF 23-MAR-2018 19:56, NO SIGNIFICANT CHANGE WAS FOUND Confirmed by WALTER HERNANDEZ MD ([id number]) on 03/02/2019 11:30:35 AM Referred By: Meredith ELISE Confirmed By:WALTER HERNANDEZ MD
[2019-03-02 13:51] VITALS: BP 127/72; PULSE 80
--- NOTE | 2019-03-02 15:06 | OP ---
DATE OF OPERATION: 03/02/2019 PREOPERATIVE DIAGNOSIS: Cervical dysplasia high-grade. POSTOPERATIVE DIAGNOSIS: Cervical dysplasia high-grade. PROCEDURE: Loop electrosurgical excision procedure. SURGEON: Marcela Jarvis DO ANESTHESIA: General with LMA. ANESTHESIOLOGIST: TY Licona ESTIMATED BLOOD LOSS: 10 mL COMPLICATIONS: None. SPECIMENS: Specimens removed included cervical LEEP biopsy and endocervical biopsy. COUNT: Sponge and instrument count correct. DISPOSITION: Stable to PACU. BRIEF HISTORY AND PROCEDURE: Patient is a 33-year-old female who had been seen in the office and diagnosed with high-grade cervical dysplasia. Patient had undergone a LEEP procedure approximately 6 months ago and the surgical margins were positive. Upon colposcopy in the office a high-grade cervical lesion was noted remaining on the cervix. The patient was counseled about options and elected to undergo a repeat LEEP procedure. Patient signed consents for the procedure in the office. She was then admitted to [facility] outpatient Ambulatory Surgery Unit and on March 02, 2019, consents were reconfirmed. She was then taken back to the operating room, given general anesthesia with LMA and placed in the dorsal lithotomy position. She was prepped and draped in the usual sterile fashion and a hard timeout was performed. A plastic speculum was placed inside the vagina. The cervix was easily visualized and using a large LEEP loop, a cervical cone biopsy was excised and then using a smaller LEEP loop, an endocervical biopsy was also removed and both were sent to Pathology for permanent evaluation. The surgical bed was cauterized with Rollerball cautery until hemostasis was achieved and Monsel solution was applied. The biopsy was marked at the 6 o'clock position with a stitch. Then, all the instruments were removed from the vagina. Sponge, needle and instrument counts were reported to be correct. The patient awoke from anesthesia in stable condition recovering in the PACU after the procedure. MARCELA JARVIS DO /[id number]
--- NOTE | 2019-03-07 16:25 | PATH ---
Surgical Pathology Report Patient Name: MIKE MARTINEZ [facility]. Rec. #: [id number] /Age/Gender: 1985 (Age: 33) / F Account: [id number] Location: [facility] SURGICAL Taken: 03/02/2019 Received: 03/02/2019 Reported: 03/07/2019 Physicians: Marcela Parham M.D. Specimen(s) Received A: STITCH AT 6 OCLOCK B: ENDOCERVICAL BX Clinical History Cervical dysplasia Final Diagnosis A. CERVIX CONE BIOPSY, STITCH AT 6:00: JUANITA 1 (CERVICAL INTRAEPITHELIAL NEOPLASIA GRADE 1) AT TRANSFORMATION ZONE. MARGINS ARE NEGATIVE FOR DYSPLASIA. B. ENDOCERVICAL BIOPSY: ENDOCERVICAL TISSUE, NEGATIVE FOR DYSPLASIA Electronically Signed Tad Zafar M.D. Gross Description A. Received in formalin, labeled "cervix biopsy, stitch at 6:00" is a portion of mucosal tissue measuring 2.0 x 2.0 x 0.5 cm with an os at the center. A stitch is marked at 6:00, per the surgeon. The resection margin is inked blue. The mucosal surface is smooth. The specimen is serially sectioned and entirely submitted in 5 cassettes as following. 1: 12 ~ 3:00. 2-3: 3 ~ 6:00. 4: 6 ~ 9:00. 5: 9 ~12:00. B. Received in formalin, labeled "endocervical biopsy" is a portion of irregular christianson soft tissue measuring 1.0 x 1.0 x 0.1 cm. The specimen is submitted in toto in one cassette. __ KWWang/03/03/2019 yariel/03/03/2019
== END 2019-03-02 12:40 | disposition home or self-care (01) ==
LOC: JASU-SURG 04:59
PROVIDERS: ATTEND Obstetrics & Gynecology
PROC: 0UBC7ZX Excision of Cervix, Via Natural or Artificial Opening, Diagnostic (ICD-10-PCS; principal; 2019-03-02 10:00)
DX: N87.0 Mild cervical dysplasia (principal)
CPT/HCPCS: 84703; 88305-TC; 88307-TC; 93005; 93010; 94760

== ENCOUNTER 2019-11-27 07:51 | Emergency (ER) | payer OTHER ==
[2019-11-27 08:04] VITALS: BP 142/71; PULSE 84; TEMP 98.6; BMI 39.3
[2019-11-27] MEDS ORDERED: ALBUTEROL SO4 2.5/IPRATROPIUM 0.5 INH SOL 3 ML VIAL.NEB. NEB ONE ×2 (08:34→09:01)
--- NOTE | 2019-11-27 08:34 | PDOC ---
History of Present Illness - General Chief Complaint: Asthma Stated Complaint: DIFFICULTY OF BREATHING Time Seen by Provider: 11/27/19 08:22 History Source: Patient Exam Limitations: No Limitations - History of Present Illness Initial Comments: 11/27/19 09:00 34 yo F with a hx of asthma presents to the emergency department with sob for the past 3 days with cough. Per the patient, she has been using her albuterol nebulizer 4-5x per day. The patient states she rarely uses her steroidal pump. Denies the following: fevers, chest pain, nausea vomiting, back pain, abdominal pain, dysuria, hematuria, and leg pain/swelling. Denies recent contacts that were sick or with confirmed or suspected COVID. Past History - Medical History Allergies/Adverse Reactions: Allergies Allergy/AdvReac Type Severity Reaction Status Date / Time No Known Allergies Allergy Verified 11/27/19 07:53 Home Medications: Ambulatory Orders Ibuprofen [Motrin -] 600 mg PO QID PRN #28 tablet 03/02/19 Albuterol 0.083% Nebulizer Irina [Ventolin 0.083% Nebulizer Soln -] 1 neb NEB Q4H #20 vial 11/27/19 predniSONE [Deltasone -] 40 mg PO DAILY #8 tablet 11/27/19 Anemia: Yes Asthma: Yes (no intubations) Cancer: No Cardiac Disorders: No CVA: No COPD: No CHF: No Dementia: No Diabetes: No GI Disorders: No Disorders: No HTN: No Hypercholesterolemia: No Liver Disease: No Psychiatric Problems: Yes (DEPRESSION, ANXIETY) Seizures: No Thyroid Disease: No - Immunization History Td Vaccination: Yes Immunization Up to Date: Yes - Psycho-Social/Smoking History Smoking Status: Yes Smoking History: Current some day smoker Years of Tobacco Use: 0 Have you smoked in the past 12 months: No Number of Cigarettes Smoked Daily: 3 If you are a former smoker, when did you quit?: 3 months Cigars Per Day: 0 Information on smoking cessation initiated: Yes 'Breaking Loose' booklet given: 07/13/13 - Substance Abuse Hx (Audit-C & DAST Scrn) How often the patient has a drink containing alcohol: Monthly or less Score: In Men: 4 or > Positive; In Women: 3 or > Positive: 1 Screen Result (Pos requires Nsg. Audit-10AR): Negative In the last yr the pt used illegal drug/Rx for NonMed reason: No Score: Yes response is considered Positive: 0 Screen Result (Positive result requires Nsg. DAST-10): Negative Review of Systems - Review of Systems Able to Perform ROS?: Yes Is the patient limited Moldovan proficient: No Constitutional: No: Chills, Diaphoresis, Fever, Weakness HEENTM: No: Eye Pain, Ear Pain, Nose Pain, Throat Pain Respiratory: Yes: Cough, Shortness of Breath Cardiac (ROS): No: Chest Pain, Lightheadedness ABD/GI: No: Constipated, Diarrhea, Nausea, Rectal Bleeding, Vomiting, Tarry Stools : No: Dysuria, Hematuria Musculoskeletal: No: Back Pain, Joint Pain, Neck Pain Integumentary: No: Bruising, Rash Neurological: No: Headache, Ataxia Psychiatric: No: Change in Appetite Endocrine: No: Unexplained Weight Loss Hematologic/Lymphatic: No: Anemia *Physical Exam - Vital Signs Last Vital Signs Temp Pulse Resp BP Pulse Ox 98.6 F 84 20 142/71 99 11/27/19 07:55 11/27/19 07:55 11/27/19 07:55 11/27/19 07:55 11/27/19 07:55 - Physical Exam General Appearance: Yes: Nourished, Appropriately Dressed. No: Apparent Distress, Intoxicated HEENT: positive: EOMI, FELIPE, Normal Voice, Symmetrical, Pharynx Normal, Hearing Grossly Normal. negative: Pale Conjunctivae, Scleral Icterus (R), Scleral Icterus (L), Muffled/Hoarse voice, Pharyngeal Erythema, Tonsillar Exudate, Tonsillar Erythema, Excessive drooling Neck: positive: Trachea midline, Supple. negative: Tender, Lymphadenopathy (R), Lymphadenopathy (L) Respiratory/Chest: positive: Lungs Clear, Normal Breath Sounds, Other (forced wheezing on expiratory phase in upper airway. no stridor noted. no foreign body noted on oropharynx inspection). negative: Chest Tender, Respiratory Distress, Accessory Muscle Use Cardiovascular: positive: Regular Rhythm, Regular Rate, S1, S2. negative: Systolic Murmur Gastrointestinal/Abdominal: positive: Normal Bowel Sounds, Flat, Soft. negative: Tender Lymphatic: negative: Adenopathy Musculoskeletal: positive: Normal Inspection. negative: CVA Tenderness, Vertebral Tenderness Extremity: positive: Normal Capillary Refill, Normal Inspection, Normal Range of Motion. negative: Tender, Swelling, Calf Tenderness Integumentary: positive: Normal Color, Dry, Warm Neurologic: positive: Alert, Normal Mood/Affect Medical Decision Making - Medical Decision Making 34 yo F with a hx of asthma presents to the emergency department with sob for the past 3 days with cough. Per the patient, she has been using her albuterol nebulizer 4-5x per day. Initial vitals; Initial Vital Signs Temp Pulse Resp BP Pulse Ox 98.6 F 84 20 142/71 99 11/27/19 07:55 11/27/19 07:55 11/27/19 07:55 11/27/19 07:55 11/27/19 07:55 Work up: patient presents with sob and coughing. ddx includes asthma exacerbation 2/2 infectious etiology vs allergic reaction. unlikely the patient is having a PE given no tachycardia, no hypoxia, no PE risk factors present including prolonged resting/sitting, and no LE swelling/pain. Will treat patients asthma and re- assess Laboratory Tests 11/27/19 09:00 Urine HCG, Qual Negative no acute infiltrates noted. patient was re-assessed after treatment. per the patient, her symptoms had resolved. will provide the patient with steroid outpatient prescription and given advice to follow up with PMD within 1 week after discharge. resolution of expiratory wheezing on forced exhalation. Dispo: Discharge Discharge - Discharge Information Problems reviewed: Yes Clinical Impression/Diagnosis: Asthma Qualifiers: Asthma severity: unspecified severity Asthma persistence: unspecified Asthma complication type: with acute exacerbation Qualified Code(s): J45.901 - Unspecified asthma with (acute) exacerbation Disposition: HOME - Admission No - Additional Discharge Information Prescriptions: predniSONE [Deltasone -] 40 mg PO DAILY #8 tablet Albuterol 0.083% Nebulizer Irina [Ventolin 0.083% Nebulizer Soln -] 1 neb NEB Q4H #20 vial - Follow up/Referral Referrals: Florentino Padilla [Primary Care Provider] - - Patient Discharge Instructions Patient Printed Discharge Instructions: Asthma -- Adult, DI for Chronic Bronchitis Additional Instructions: You were seen in the emergency department for the evaluation of your shortness of breath. Please follow up with your primary medical doctor within 1 week after discharge for follow up care and management. Please take the medications as prescribed. It is important to use your steroid inhaler when you feel symptoms which is 2 puffs. Please follow the directions on it. Please return to the emergency department if you have worsening symptoms or new concerning symptoms. Thank you. - Post Discharge Activity
[2019-11-27] MEDS ORDERED: predniSONE 20 MG TABLET (UD) PO ONE (08:37)
--- NOTE | 2019-11-27 08:52 | PDOC ---
Attending Attestation - Resident Resident Name: Savage Hoskins - ED Attending Attestation I have performed the following: I have examined & evaluated the patient, The case was reviewed & discussed with the resident, I agree w/resident's findings & plan, Exceptions are as noted - HPI HPI: 11/27/19 10:14 34y F hx of asthma presents with complint of cough/sob x 3 days. Notes she has been using her albuterol several times a day without improvement. Pt endorses cough productive of yelow sputum, emilia any cp, leg swelling, hemoptysis, fever/chill, recent travel o rsick contacts. deines SCHWARTZ. exam: GENERAL: The patient is awake, alert, and fully oriented, Nontoxic - in no acute distress. HEAD: Normocephalic, atraumatic. LUNGS: Breath sounds equal, scattered wheezing clear to auscultation bilaterally. Speaking complete sentences no acute respiratory distress HEART: Regular rate and rhythm, normal S1 and S2 without murmur, rub or gallop. EXTREMITIES: Normal range of motion, no edema. No calf tenderness, negative Homans sign Mild exacerbation of asthma, will obtain chest x-ray to rule out pneumonia We will given albuterol, prednisone Anticipate follow-up with PMD - Physicial Exam PE: 11/27/19 11:08 see above - Medical Decision Making 11/27/19 11:08 xray clear pt feeling beter after iniial meds will dc wiht pmd fu return precutions were discussed Discharge - Discharge Information Problems reviewed: Yes Clinical Impression/Diagnosis: Asthma Qualifiers: Asthma severity: unspecified severity Asthma persistence: unspecified Asthma complication type: with acute exacerbation Qualified Code(s): J45.901 - Unspecified asthma with (acute) exacerbation Disposition: HOME - Additional Discharge Information Prescriptions: predniSONE [Deltasone -] 40 mg PO DAILY #8 tablet Albuterol 0.083% Nebulizer Irina [Ventolin 0.083% Nebulizer Soln -] 1 neb NEB Q4H #20 vial - Follow up/Referral Referrals: Florentino Padilla [Primary Care Provider] - - Patient Discharge Instructions Patient Printed Discharge Instructions: Asthma -- Adult, DI for Chronic Bronchitis Additional Instructions: You were seen in the emergency department for the evaluation of your shortness of breath. Please follow up with your primary medical doctor within 1 week after discharge for follow up care and management. Please take the medications as prescribed. It is important to use your steroid inhaler when you feel symptoms which is 2 puffs. Please follow the directions on it. Please return to the emergency department if you have worsening symptoms or new concerning symptoms. Thank you. - Post Discharge Activity
[2019-11-27] MEDS ORDERED: predniSONE 20 MG TABLET (UD) ONE (09:01)
== END 2019-11-27 10:27 | disposition home or self-care (01) ==
LOC: JER 07:51
PROC: 3E0F7GC Introduction of Other Therapeutic Substance into Respiratory Tract, Via Natural or Artificial Opening (ICD-10-PCS; principal; 2019-11-27)
DX: J45.909 Unspecified asthma, uncomplicated (principal)
CPT/HCPCS: 71046-TC-FY; 84703; 94640; 99284-25

== ENCOUNTER 2021-06-08 10:34 | Emergency (ER) | payer OTHER ==
[2021-06-08 10:50] VITALS: TEMP 97.8; BMI 37.2
[2021-06-08 12:39] LABS: EPI CELLS 27 /uL (0-25.1); HYALINE CASTS 0 /uL (0-3.1); PH,URINE 6.5 (5.0-8.0); URINE APPEARANCE CLEAR; URINE BACTERIA 222 /uL (0-1359); URINE BILIRUBIN NEGATIVE (NEGATIVE); URINE COLOR YELLOW; URINE GLUCOSE (UA) NEGATIVE (NEGATIVE); URINE KETONE NEGATIVE (NEGATIVE); URINE LEUK ESTERASE NEGATIVE (NEGATIVE); URINE NITRITE NEGATIVE (NEGATIVE); URINE PROTEIN NEGATIVE (NEGATIVE); URINE RBC 47 /uL (0-23.9); URINE UROBILINOGEN 0.2 mg/dL (0.2-1.0); URINE WBC 8 /uL (0-25.8)
[2021-06-08 14:41] VITALS: BP 124/78; PULSE 88
== END 2021-06-08 14:30 | disposition home or self-care (01) ==
LOC: JER 10:34
DX: R30.0 Dysuria (principal); J06.9 Acute upper respiratory infection, unspecified; N39.0 Urinary tract infection, site not specified
CPT/HCPCS: 36415; 71045-TC-FY; 81003; 84703; 87086; 87491; 87591; 87661; 87804; 99284-25; C9803-CS; U0003; U0005

== ENCOUNTER 2022-05-27 10:40 | Emergency (ER) | payer OTHER ==
[2022-05-27 10:46] VITALS: BMI 34.9
[2022-05-27] MEDS ORDERED: ALBUTEROL SO4 2.5/IPRATROPIUM 0.5 INH SOL 3 ML VIAL.NEB. NEB ONE ×2 (11:51→11:52)
[2022-05-27] MEDS ORDERED: LACTATED RINGERS SOLUTION 1000 ML INFUS.BAG IV ONE ×2 (12:08→14:43)
[2022-05-27] MEDS ORDERED: DEXAMETHASONE SOD PHOSPHATE 10 MG/1 ML VIAL IVPUSH ONE (12:09)
[2022-05-27] MEDS ORDERED: ACETAMINOPHEN 1000 MG/100 ML BAG IVPB ONE (12:25)
[2022-05-27] MEDS ORDERED: DEXAMETHASONE SOD PHOSPHATE 10 MG/1 ML VIAL ONE (12:25)
[2022-05-27] MEDS ORDERED: ACETAMINOPHEN INJECTION 100 ML IVPB ONE (12:25)
[2022-05-27 14:05] VITALS: TEMP 97.5
[2022-05-27 15:05] LABS: BASO % 0.7 % (0-2.0); EOS % 0.2 % (0-4.5); HEMATOCRIT 35.4 % (32.4-45.2); HEMOGLOBIN 11.7 GM/dL (10.7-15.3); LYMPH % 20.8 % (8-40); MCH 24.7 pg (25.7-33.7); MCHC 32.9 g/dl (32.0-36.0); MEAN CELL VOLUME 75.1 fl (80-96); MEAN PLT VOLUME 9.3 fl (7.5-11.1); MONO % 14.7 % (3.8-10.2); NEUT % 63.6 % (42.8-82.8); PLATELET COUNT 277 10^3/uL (134-434); RBC 4.72 M/mm3 (3.60-5.2); RDW 18.2 % (11.6-15.6); WHITE BLOOD COUNT 6.7 K/mm3 (4.0-10.0)
[2022-05-27 15:08] LABS: ALBUMIN 3.5 g/dl (3.4-5.0); CALCIUM 8.7 mg/dL (8.5-10.1)
[2022-05-27 15:09] LABS: BLOOD UREA NITROGEN 6.7 mg/dL (7-18)
[2022-05-27 15:12] LABS: CREATININE 0.8 mg/dL (0.55-1.3)
[2022-05-27 15:13] LABS: BILIRUBIN,TOTAL 0.4 mg/dL (0.2-1); TOT PROT 7.7 g/dl (6.4-8.2)
[2022-05-27] MEDS ORDERED: clonazePAM 0.5 MG TABLET PO ONE (15:58)
[2022-05-27] MEDS ORDERED: clonazePAM 0.5 MG TABLET ONE (16:10)
[2022-05-27 17:05] VITALS: BP 103/73; PULSE 96; RESP 22
[2022-05-28 06:59] LABS: EPI CELLS 23 /uL (0-25.1); HYALINE CASTS 1 /uL (0-3.1); URINE APPEARANCE CLEAR; URINE BACTERIA 8176 /uL (0-1359); URINE BILIRUBIN NEGATIVE (NEGATIVE); URINE COLOR YELLOW; URINE GLUCOSE (UA) NEGATIVE (NEGATIVE); URINE KETONE NEGATIVE (NEGATIVE); URINE LEUK ESTERASE NEGATIVE (NEGATIVE); URINE NITRITE POSITIVE (NEGATIVE); URINE PROTEIN NEGATIVE (NEGATIVE); URINE RBC 82 /uL (0-23.9); URINE UROBILINOGEN 0.2 mg/dL (0.2-1.0); URINE WBC 13 /uL (0-25.8)
== END 2022-05-27 19:12 | disposition home or self-care (01) ==
LOC: JER 10:40
PROC: 3E033GC Introduction of Other Therapeutic Substance into Peripheral Vein, Percutaneous Approach (ICD-10-PCS; principal; 2022-05-27)
PROC: 3E0F7GC Introduction of Other Therapeutic Substance into Respiratory Tract, Via Natural or Artificial Opening (ICD-10-PCS; 2022-05-27)
DX: J45.909 Unspecified asthma, uncomplicated (principal); B34.9 Viral infection, unspecified
CPT/HCPCS: 0241U-QW; 36415; 71045-TC-FY; 71275-TC; 80053; 81003; 84443; 84703; 85025; 85379; 94640; 96374; 96375; 99285-25; J1100; Q9967

== ENCOUNTER 2022-11-25 11:51 | Emergency (ER) | payer OTHER ==
[2022-11-25 11:58] VITALS: BP 110/73; PULSE 77; RESP 18; TEMP 97; BMI 35.0
[2022-11-25 13:57] LABS: BASO % 0.6 % (0-2.0); EOS % 2.2 % (0-4.5); HEMATOCRIT 33.5 % (32.4-45.2); HEMOGLOBIN 10.8 GM/dL (10.7-15.3); LYMPH % 23.2 % (8-40); MCH 24.6 pg (25.7-33.7); MCHC 32.3 g/dl (32.0-36.0); MEAN CELL VOLUME 76.3 fl (80-96); MEAN PLT VOLUME 9.5 fl (7.5-11.1); MONO % 4.8 % (3.8-10.2); NEUT % 69.2 % (42.8-82.8); PLATELET COUNT 334 10^3/uL (134-434); RBC 4.39 M/mm3 (3.60-5.2); RDW 19.2 % (11.6-15.6); WHITE BLOOD COUNT 9.7 K/mm3 (4.0-10.0)
[2022-11-25 14:21] LABS: POTASSIUM 3.9 mmol/L (3.5-5.1)
[2022-11-25 14:22] LABS: ALBUMIN 3.6 g/dl (3.4-5.0); CALCIUM 8.6 mg/dL (8.5-10.1)
[2022-11-25 14:24] LABS: EPI CELLS >36 /uL (0-25.1); HYALINE CASTS 0 /uL (0-3.1); PH,URINE 6.5 (5.0-8.0); URINE APPEARANCE CLEAR; URINE BACTERIA 786 /uL (0-1359); URINE BILIRUBIN NEGATIVE (NEGATIVE); URINE COLOR YELLOW; URINE GLUCOSE (UA) NEGATIVE (NEGATIVE); URINE KETONE NEGATIVE (NEGATIVE); URINE LEUK ESTERASE TRACE (NEGATIVE); URINE NITRITE NEGATIVE (NEGATIVE); URINE PROTEIN NEGATIVE (NEGATIVE); URINE UROBILINOGEN 0.2 mg/dL (0.2-1.0); URINE WBC 18 /uL (0-25.8)
[2022-11-25 14:24] LABS: BLOOD UREA NITROGEN 9.8 mg/dL (7-18)
[2022-11-25 14:26] LABS: CREATININE 0.7 mg/dL (0.55-1.3)
[2022-11-25 14:28] LABS: BILIRUBIN,TOTAL 0.2 mg/dL (0.2-1); TOT PROT 7.3 g/dl (6.4-8.2)
[2022-11-25 14:31] LABS: URINE RBC 23 /uL (0-23.9)
== END 2022-11-25 15:20 | disposition home or self-care (01) ==
LOC: JER 11:51
DX: R20.0 Anesthesia of skin (principal)
CPT/HCPCS: 36415; 80053; 81003; 82310; 83970; 84443; 84703; 85025; 87086; 99283-25

== ENCOUNTER 2025-02-21 19:02 | Emergency (ER) | payer OTHER ==
[2025-02-21 19:21] VITALS: BP 122/81; PULSE 86; RESP 20; TEMP 98.1; BMI 37.2
[2025-02-21] MEDS ORDERED: ACETAMINOPHEN 1000 MG/100 ML BAG IVPB ONE (20:23)
[2025-02-21] MEDS ORDERED: ALBUTEROL SO4 2.5/IPRATROPIUM 0.5 INH SOL 3 ML VIAL.NEB. NEB ONE (20:40)
[2025-02-21] MEDS ORDERED: methylPREDNISolone NA SUCC 125 MG/2 ML VIAL ONE (20:40)
[2025-02-21] MEDS ORDERED: ACETAMINOPHEN 325 MG TABLET (FP) ONE (20:40)
[2025-02-21] MEDS: methylPREDNISolone NA SUCC 125 MG/2 ML VIAL IM ONE (20:51)
[2025-02-21] MEDS: ACETAMINOPHEN 325 MG TABLET (FP) PO ONE (20:51)
[2025-02-21] MEDS: ALBUTEROL SO4 2.5/IPRATROPIUM 0.5 INH SOL 3 ML VIAL.NEB. NEB SCH (21:15)
== END 2025-02-21 22:30 | disposition home or self-care (01) ==
LOC: JER 19:02
PROC: 3E023GC Introduction of Other Therapeutic Substance into Muscle, Percutaneous Approach (ICD-10-PCS; principal; 2025-02-21)
PROC: 3E0F7GC Introduction of Other Therapeutic Substance into Respiratory Tract, Via Natural or Artificial Opening (ICD-10-PCS; 2025-02-21)
PROC: 3E0F7GC Introduction of Other Therapeutic Substance into Respiratory Tract, Via Natural or Artificial Opening (ICD-10-PCS; 2025-02-21)
DX: J45.901 Unspecified asthma with (acute) exacerbation (principal); R06.02 Shortness of breath; R05.9 Cough, unspecified; J02.9 Acute pharyngitis, unspecified; R09.89 Other specified symptoms and signs involving the circulatory and respiratory systems; R51.9 Headache, unspecified; R68.83 Chills (without fever)
CPT/HCPCS: 71046-TC-FY; 87637-QW; 99284-25